=== PATIENT | female | born 1955 | race African-American/Black ===

== ENCOUNTER 2017-11-06 18:14 | Emergency (ER) | payer OTHER ==
[~2017-11-06] VITALS: Ht 162.6 cm; Wt 70.0 kg
[2017-11-06] MEDS ORDERED: LIDOCAINE 5% PATCH TOP SCH (19:15)
[2017-11-06] MEDS ORDERED: IBUPROFEN 600MG TABLET PO ONE (19:15)
[2017-11-06 20:05] VITALS: BP 127/73
== END 2017-11-06 20:05 | disposition home or self-care (01) ==
LOC: ER 18:48
DX: S16.1XXA Strain of muscle, fascia and tendon at neck level, initial encounter (principal); R03.0 Elevated blood-pressure reading, without diagnosis of hypertension; V49.40XA Driver injured in collision with unspecified motor vehicles in traffic accident, initial encounter; Y93.89 Activity, other specified; Y92.410 Unspecified street and highway as the place of occurrence of the external cause
CPT/HCPCS: 99283